=== PATIENT | male | born 1965 | race Two or more races ===

== ENCOUNTER 2017-11-25 11:50 | Emergency (ER) | payer OTHER ==
[2017-11-25 11:56] VITALS: BP 159/70; PULSE 59; TEMP 97.6; BMI 25.8
--- NOTE | 2017-11-25 12:52 | PDOC ---
History of Present Illness - General History Source: Patient Exam Limitations: No Limitations - History of Present Illness Initial Comments: CHIEF COMPLAINT: 52 y/o afebrile male with PMH HTN, CHF, ACS, IDDM on HD M/W/F c/o left calf swelling and pain x 10 days. HISTORY OF PRESENT ILLNESS: The patient states his dialysis doctor saw his leg yesterday and suggested he come in to r/o DVT. He denies fever, cough, hemoptysis, n/v/d, CP, SOB, abd pain, back pain. Vital signs on arrival are within normal limits. REVIEW OF SYSTEMS: GENERAL/CONSTITUTIONAL: No fever/chills. No weakness. No weight change. CARDIOVASCULAR: No chest pain or shortness of breath. RESPIRATORY: No cough, wheezing, or hemoptysis. MUSCULOSKELETAL: +left lower leg pain and swelling. No neck or back pain. SKIN: No rash or easy bruising. NEUROLOGIC: No headache, vertigo, loss of consciousness, or loss of sensation. PHYSICAL EXAM: VITAL_SIGNS: within normal limits GENERAL_APPEARANCE: alert, cooperative, no obvious discomfort. MENTAL_STATUS: speech clear, oriented X 3, responds appropriately to questions. NEURO: motor intact and sensory intact in injured extremity. EXTREMITIES: 2+ dorsalis pedis pulse left LE. 2+ pitting edema to b/l LEs. Left LE is moderately more edematous than right. Pain with palpation of left calf with + Yovany's sign. No cyanosis or coolness to LEs. SKIN: warm, dry, good color. <Jayne Carlos - Last Filed: 11/25/17 14:47> <Eric Tarango - Last Filed: 11/27/17 07:35> - General Chief Complaint: Pain Stated Complaint: LEG PAIN Time Seen by Provider: 11/25/17 12:17 Past History - Past Medical History COPD: No Diabetes: Yes Dialysis: Yes (M-W-) HTN: Yes Other medical history: legally blind - Suicide/Smoking/Psychosocial Hx Smoking History: Never smoked <Jayne Carlos - Last Filed: 11/25/17 14:47> <Eric Tarango - Last Filed: 11/27/17 07:35> - Past Medical History Allergies/Adverse Reactions: Allergies Allergy/AdvReac Type Severity Reaction Status Date / Time No Known Allergies Allergy Verified 11/25/17 11:57 Home Medications: Ambulatory Orders Tramadol HCl 50 mg PO TID #20 tablet MDD 3 11/25/17 *Physical Exam - Vital Signs Last Vital Signs Temp Pulse Resp BP Pulse Ox 97.6 F 59 L 18 159/70 99 11/25/17 11:53 11/25/17 11:53 11/25/17 11:53 11/25/17 11:53 11/25/17 11:53 <Jayne Carlos - Last Filed: 11/25/17 14:47> - Vital Signs Last Vital Signs Temp Pulse Resp BP Pulse Ox 97.6 F 59 L 18 159/70 99 11/25/17 11:53 11/25/17 11:53 11/25/17 11:53 11/25/17 11:53 11/25/17 11:53 <Eric Tarango - Last Filed: 11/27/17 07:35> Moderate Sedation - Procedure Monitoring Vital Signs: Vital Signs Temp Pulse Resp BP Pulse Ox 97.6 F 59 L 18 159/70 99 11/25/17 11:53 11/25/17 11:53 11/25/17 11:53 11/25/17 11:53 11/25/17 11:53 <Eric Tarango - Last Filed: 11/27/17 07:35> ED Treatment Course - RADIOLOGY Radiology Studies Ordered: Category Date Time Status DUPLEX VASCUL US-1 LEG [US] Stat Ultrasound 11/25/17 12:34 Ordered <Jayne Carlos - Last Filed: 11/25/17 14:47> - Medications Given in the ED: ED Medications Discontinued Medications Generic Name Dose Route Start Last Admin Trade Name Freq PRN Reason Stop Dose Admin Tramadol HCl 50 mg 11/25/17 14:45 11/25/17 14:53 Ultram - PO 11/25/17 14:46 50 mg ONCE ONE Administration <Eric Tarango - Last Filed: 11/27/17 07:35> Medical Decision Making - Medical Decision Making A/P: 52 y/o male here with left LE pain and swelling x 10 days. Plan is as follows: 1. Left LE ultrasound to r/o DVT Left LE doppler IMPRESSION: No evidence of DVT Gave patient all of his results. Will discharge to home with instructions to f/ u with his doctor on Monday, continue taking medications as prescribed and return to the ER with any worsening or concerning symptoms. he does state he has compression stockings at home and I suggested he use them. The patient verbalizes understanding of all instructions, has no further questions and is awaiting discharge. <Jayne Carlos - Last Filed: 11/25/17 14:47> - Medical Decision Making The patient was seen and evaluated in conjunction with TASHA Carlos under my direct supervision, ancillary studies were reviewed. I agree with the plan as outlined by TASHA Carlos . <Eric Tarango - Last Filed: 11/27/17 07:35> *DC/Admit/Observation/Transfer <Jayne Carlos - Last Filed: 11/25/17 14:47> <Eric Tarango - Last Filed: 11/27/17 07:35> Diagnosis at time of Disposition: Leg pain, left Edema Qualifiers: Edema type: unspecified Qualified Code(s): R60.9 - Edema, unspecified - Discharge Dispostion Disposition: HOME Condition at time of disposition: Good - Prescriptions Prescriptions: Tramadol HCl 50 mg PO TID #20 tablet MDD 3 - Patient Instructions Printed Discharge Instructions: DI for Leg Pain, DI for Peripheral Edema, Unilateral Additional Instructions: Discharge Instructions: -The ultrasound of your left leg shows no DVT. -Please continue taking your medications as prescribed -Call your doctor on Monday to schedule follow up appointment -Return to the ER with any worsening or concerning symptoms Instrucciones de descarga: -El ultrasonido de card pierna izquierda no muestra TVP. -Por favor contine tomando cresencio medicamentos segn lo prescrito Llame a card mdico el para programar nehemiah ginna de seguimiento -Volver a la litzy de urgencias con cualquier empeoramiento o sntomas Print Language: ICELANDIC
[2017-11-25] MEDS ORDERED: traMADol HCL 50 MG TABLET PO ONE (14:45)
[2017-11-25] MEDS ORDERED: traMADol HCL 50 MG TABLET ONE (14:50)
== END 2017-11-25 14:53 | disposition home or self-care (01) ==
LOC: JER 11:50
DX: R60.0 Localized edema (principal); I25.10 Atherosclerotic heart disease of native coronary artery without angina pectoris; I13.2 Hypertensive heart and chronic kidney disease with heart failure and with stage 5 chronic kidney disease, or end stage renal disease; N18.6 End stage renal disease; I50.89 Other heart failure; Z99.2 Dependence on renal dialysis; E11.9 Type 2 diabetes mellitus without complications; Z79.4 Long term (current) use of insulin; H54.8 Legal blindness, as defined in USA
CPT/HCPCS: 93971-TC; 99282-25